=== PATIENT | male | born 1985 | race Caucasian/White ===

== ENCOUNTER → 2020-10-24 11:18 | Outpatient (BNVA) | payer SELFPAY | PROVIDERS: Visit Provider Nurse Practitioner Family | DX: M25.511 Pain in right shoulder (principal); V29.3XXA Motorcycle rider (driver) (passenger) injured in unspecified nontraffic accident, initial encounter; R07.1 Chest pain on breathing; R14.0 Abdominal distension (gaseous); F11.20 Opioid dependence, uncomplicated; R31.9 Hematuria, unspecified; R81 Glycosuria; S43.101A Unspecified dislocation of right acromioclavicular joint, initial encounter | CPT/HCPCS: 71046; 73030 ==

== ENCOUNTER 2020-10-24 13:25 | Emergency (ER) | payer SELFPAY ==
[2020-10-24 13:41] VITALS: BP 164/96; PULSE 81; RESP 14; TEMP 36.4; O2SAT 100; BMI 25.2
--- NOTE | 2020-10-24 16:15 | XR_ITS ---
WS: [id number] Right shoulder, 3 views, 10/24/2020, 1723 hours Clinical Data: pain Comparison: Right shoulder, yesterday, 1142 hours Findings: There is elevation of the right clavicle above the acromium and there is widening of the distance bet ween the acromion and lateral clavicle. This is consistent with an AC separation and minimal dislocat ion. The shoulder joints in good position. No fractures are seen. The soft tissues are normal. XR/XR shoulder RT min 2V* [id number] Impression: AC separation and dislocation unchanged from earlier in the day.
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
[2020-10-24 16:38] VITALS: BP 122/80; PULSE 77; RESP 16; O2SAT 98
[2020-10-24 16:43] VITALS: RESP 18; O2SAT 98
[2020-10-24] MEDS: ondansetron 2 mg/ML SDV 2 mL 4 MG IVP (16:43)
[2020-10-24] MEDS: sodium chloride 0.9% 1,000 ML 999 ML IV (16:43)
[2020-10-24] MEDS: morphine 4 mg/mL SDV 1 mL IVP (16:43)
[2020-10-24 16:44] LABS: Basophils % 0.3 %; Eosinophils # 0.1 10^3/uL (0.0-0.8); Hematocrit 45.7 % (42.0-52.0); Hemoglobin 15.1 g/dL (11.7-16.6); Lymphocytes % 18.1 %; Mean Corpuscular Hemoglobin 29.4 pg (28.0-34.0); Mean Corpuscular Volume 88.9 fL (80-94); Mean Platelet Volume 11.3 fL (7.4-10.4); Monocytes # 0.9 10^3/uL (0.2-0.9); Monocytes % 7.7 %; Neutrophils # 8.17 10^3/uL (1.8-7.7); Neutrophils % 72.6 %; Nucleated Red Blood Cells % 0 %; Platelet Count 249 10^3/cmm (130-400); Red Blood Count 5.14 10^6/uL (4.1-5.3); Red Cell Distribution Width 12.3 % (12.1-15.1); White Blood Count 11.2 10^3/uL (4.0-10.0)
[2020-10-24] MEDS: iohexol 300 mg/mL 100 mL Btl IV (17:13)
[2020-10-24 17:20] LABS: Alanine Aminotransferase 66 U/L (0-41); Albumin Level 4.2 g/dL (3.5-5.2); Alkaline Phosphatase 88 IU/L (40-130); Anion Gap 12.7 (5-19); Aspartate Amino Transferase 37 U/L (0-40); Blood Urea Nitrogen 11 mg/dL (6-20); Calcium 9.3 mg/dL (8.5-10.5); Carbon Dioxide 27 mmol/L (22-29); Chloride 94 mmol/L (98-107); Globulin 2.9 g/dL (1.3-4.6); Glomerular Filtration Rate 96.6 mL/min (90-130); Glucose 388 mg/dL (65-115); Osmolality Calculated 283 mOsm/kg (285-295); Potassium 4.7 mmol/L (3.5-5.1); Sodium 129 mmol/L (136-145); Total Bilirubin 0.5 mg/dL (0.15-1.2); Total Protein 7.1 g/dL (6.6-8.7)
[2020-10-24 17:37] VITALS: BP 136/100; PULSE 76; RESP 16; O2SAT 99
[2020-10-24 17:46] LABS: Add Urine Microscopic? NO
[2020-10-24 18:22] LABS: Bilirubin Urine Neg (Negative); Blood Urine Neg (Negative); Glucose Urine UA 4+ (Normal); Ketones Urine Negative (Negative); Leukocyte Esterase Urine Negative (Negative); Nitrate Urine Negative (Negative); Protein Urine Neg (Negative); Urine Appearance Clear (CLEAR); Urine Color Straw (Yellow); Urobilinogen Urine Norm (Negative); pH Urine 5 (5-7)
[2020-10-24 18:58] VITALS: BP 139/99; PULSE 88; RESP 16; O2SAT 98
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
--- NOTE | 2020-11-07 09:59 | DCPLANNER ---
payroll manager called the ortho clinic, spoke with Elvira to confirm that a follow up appointment had been scheduled for patient. payroll manager was told that clinic called patient to schedule an appointment, but that patient was to call clinic back to schedule that appointment.
== END 2020-10-24 18:58 | disposition home or self-care (01) ==
PROVIDERS: Family Medicine; Emergency Provider Emergency Medicine
DX: S43.101A Unspecified dislocation of right acromioclavicular joint, initial encounter (principal); S22.31XA Fracture of one rib, right side, initial encounter for closed fracture; F17.210 Nicotine dependence, cigarettes, uncomplicated; V29.9XXA Motorcycle rider (driver) (passenger) injured in unspecified traffic accident, initial encounter
CPT/HCPCS: 71260; 72125; 73030; 73502; 74177; 80053; 80307; 81000; 81003; 85025; 96361; 96374; 96375; 99284; J2270; J2405; J7030; Q9967

== ENCOUNTER → 2021-08-05 13:31 | Outpatient (BNVA) | payer SELFPAY | PROVIDERS: Visit Provider Nurse Practitioner Family | DX: M25.572 Pain in left ankle and joints of left foot (principal); M25.472 Effusion, left ankle | CPT/HCPCS: 73610 ==

== ENCOUNTER 2023-09-14 22:08 | Emergency (ER) | payer SELFPAY ==
[2023-09-14 22:27] VITALS: BP 142/91; PULSE 62; RESP 18; TEMP 36.7; O2SAT 98; BMI 21.1
[2023-09-14 22:30] LABS: Glucose Point of Care > 600 mg/dL (70-110)
--- NOTE | 2023-09-14 22:49 | W.ED.GENADLT ---
HPI - General Adult General: Chief complaint: General Medical Stated complaint: hyperglycemia Time Seen by Provider: 09/14/23 22:19 History of Present Illness: Patient presents here from [facility]'s office with complaints of high blood sugar. Patient says he is a diabetic but is never really been to the doctor and just takes [id number] when he can. But patient has not had any insulin in weeks. Patient did say 3 to 4 years ago he was in the hospital for about 2 weeks secondary to severe hyperglycemia NS when they found that he was a diabetic. The patient did not follow-up with any doctor after that. Review of Systems General: Reports: 10 or more systems reviewed and unremarkable except in HPI and below PFSH ED PFSH: Social History Smoking and tobacco/nicotine status: current every day tobacco/nicotine user cigarettes Packs smoked per day: 2 Substance/Drug Use: current Physical Exam Const: COMMON NORMALS: no acute distress, average body habitus, patient oriented x3, no limitations, healthy appearing, alert and well nourished HENMT: COMMON NORMALS: normocephalic, atraumatic, hearing grossly normal bilaterally, external ears normal, Normal external nose present, moist oral mucous membranes and oropharynx normal HEAD & SCALP: normocephalic and atraumatic NOSE: Normal external nose present EXTERNAL EAR: Yes external ears normal Neck/C-Spine: COMMON NORMALS: full ROM, no lymphadenopathy, supple, no meningeal signs, no JVD and Thyroid normal THYROID: Thyroid normal Chest: COMMONS NORMALS: normal inspection of the chest and normal palpation of entire chest wall Resp: COMMON NORMALS: normal respiratory effort, No retractions, No use of accessory muscles and clear to auscultation bilaterally AUSCULTATION: clear to auscultation bilaterally Cardio: COMMON NORMALS: no JVD, regular rate, regular rhythm, S1 normal heart sound present, S2 normal heart sound present, No gallops present (Cardio), No clicks present (Cardio), No murmurs present (Cardio) and No rub (Cardio) RATE: regular rate RHYTHM: regular rhythm HEART SOUNDS: S1 normal heart sound present and S2 normal heart sound present GI: COMMON NORMALS: Normal to inspection, nondistended, normoactive bowel sounds present, Soft to palpation, non-tender, No hepatosplenomegaly present and no masses PALPATION: Yes Soft to palpation and Yes No hepatosplenomegaly present Neuro: COMMON NORMALS: patient oriented x3 SENSORIUM/ORIENTATION: Yes alert MENINGEAL SIGNS: Yes no meningeal signs Course Vital Signs: Vital signs: Vital Signs Temperature 98.0 F 09/14/23 22:27 Pulse Rate 64 09/15/23 01:19 Respiratory Rate 18 09/14/23 22:27 Blood Pressure 132/78 09/15/23 01:19 Pulse Oximetry 99 09/15/23 01:19 Oxygen Delivery Me thod Room Air 09/14/23 22:27 MDM - General Adult Medical Decision Making Patient was brought to the ER with high blood sugar. Patient is uncontrolled diabetic who does not use medicine correctly. Patient's sugar was elevated he was given IV insulin and bolus normal saline. His lab work did not show ketones, he was not acidotic and he was discharged back to the care of the police department. Differential Diagnosis DKA, hyperglycemia Medical Records I reviewed the patient's medical records. Lab Data I reviewed the patient's lab results. 09/14/23 22:45 09/14/23 22:45 Laboratory Results WBC 6.30 10^3/uL (3.29-11.43) 09/14/23 22:45 RBC 5.02 10^6/uL (3.85-5.65) 09/14/23 22:45 Hgb 14.70 g/dL (11.27-16.99) 09/14/23 22:45 Hct 43.0 % (37-53) 09/14/23 22:45 MCV 85.7 fl (82-101) 09/14/23 22:45 MCH 29.3 pg (27-33) 09/14/23 22:45 MCHC 34.2 g/dL (30-55) 09/14/23 22:45 RDW 12.0 % (12.1-15.1) L 09/14/23 22:45 Plt Count 246 10^3/cmm (157-399) 09/14/23 22:45 MPV 11.4 fL (7.4-10.4) H 09/14/23 22:45 Neut % (Auto) 53.4 % 09/14/23 22:45 Lymph % (Auto) 37.5 % 09/14/23 22:45 [place] % (Auto) 7.3 % 09/14/23 22:45 Eos % (Auto) 1.0 % 09/14/23 22:45 Baso % (Auto) 0.6 % 09/14/23 22:45 Neut # (Auto) 3.37 10^3/uL (1.8-7.7) 09/14/23 22:45 Lymph # (Auto) 2.4 10^3/uL (0.8-4.8) 09/14/23 22:45 [place] # (Auto) 0.5 10^3/uL (0.2-0.9) 09/14/23 22:45 Eos # (Auto) 0.1 10^3/uL (0.0-0.8) 09/14/23 22:45 Baso # (Auto) 0.0 10^3/uL (0.0-0.1) 09/14/23 22:45 Nucleated RBC % (auto) 0 % 09/14/23 22:45 Nucleated RBCs # 0.0 /100WBC 09/14/23 22:45 Specimen Type Mixedvenous 09/14/23 23:10 Sample Site Radial, left 09/14/23 23:10 ABG pH 7.38 (7.35-7.45) 09/14/23 23:10 ABG pCO2 51.2 mmHg (35-45) H 09/14/23 23:10 ABG PO2/FiO2 Ratio 0 09/14/23 23:10 ABG HCO3 30.3 mmol/L (22-26) H 09/14/23 23:10 ABG O2 Saturation 72.8 09/14/23 23:10 ABG Base Excess 3.8 mmol/L (-2.0-2.0) H 09/14/23 23:10 [place] Test Pos 09/14/23 23:10 A-a O2 Gradient 6.4 mmHg (5-10) 09/14/23 23:10 Hematocrit 47.8 % (42-52) 09/14/23 23:10 Hgb O2 Saturation 71.3 % (95-100) L 09/14/23 23:10 Carboxyhemoglobin 1.3 %THgb (0.4-20.1) 09/14/23 23:10 Methemoglobin 0.8 % (0.4-1.5) 09/14/23 23:10 Total Hemoglobin 15.6 g/dL (14-18) 09/14/23 23:10 Sodium 129.0 mmol/L (131-143) L 09/14/23 23:10 Potassium 4.2 mmol/L (3.5-5.0) 09/14/23 23:10 Glucose 533.0 mg/dL (70-115) H 09/14/23 23:10 Ionized Calcium 1.2 mmol/L (1.1-1.4) 09/14/23 23:10 O2 Delivery Device None 09/14/23 23:10 FiO2 21.0 % 09/14/23 23:10 [place] ID Alewe 09/14/23 23:10 Sodium 127 mmol/L (136-145) L 09/14/23 22:45 Potassium 4.6 mmol/L (3.5-5.1) 09/14/23 22:45 Chloride 91 mmol/L (98-107) L 09/14/23 22:45 Carbon Dioxide 25 mmol/L (22-29) 09/14/23 22:45 Anion Gap 15.6 (5-19) 09/14/23 22:45 BUN 17 mg/dL (6-20) 09/14/23 22:45 Creatinine 0.9 mg/dL (0.7-1.2) 09/14/23 22:45 GFR Calculation 95.0 mL/min (90-130) 09/14/23 22:45 Glucose 581 mg/dL (65-115) H* 09/14/23 22:45 POC Glucose 264 mg/dL (70-110) H 09/15/23 01:09 Calculated Osmolality 292 mOsm/kg (285-295) 09/14/23 22:45 Calcium 9.5 mg/dL (8.5-10.5) 09/14/23 22:45 Magnesium 1.8 mg/dL (1.7-2.3) 09/14/23 22:45 Total Bilirubin 0.5 mg/dL (0.15-1.2) 09/14/23 22:45 AST 15 U/L (0-40) 09/14/23 22:45 ALT 26 U/L (0-41) 09/14/23 22:45 Alkaline Phosphatase 84 U/L (40-130) 09/14/23 22:45 Total Protein 6.4 g/dL (6.6-8.7) L 09/14/23 22:45 Albumin 4.0 g/dL (3.5-5.2) 09/14/23 22:45 Globulin 2.4 g/dL (1.3-4.6) 09/14/23 22:45 Urine Color Light yellow (Yellow) 09/14/23 23:29 Urine Appearance Clear (CLEAR) 09/14/23 23:29 Urine pH 7 (5-7) 09/14/23 23:29 Ur Specific [place] 1.005 (1.005-1.030) 09/14/23 23:29 Urine Protein Neg (Negative) 09/14/23 23:29 Urine Glucose (UA) 4+ (Normal) H 09/14/23 23:29 Urine Ketones Negative (Negative) 09/14/23 23:29 Urine Blood Neg (Negative) 09/14/23 23:29 Urine Nitrate Negative (Negative) 09/14/23 23:29 Urine Bilirubin Neg (Negative) 09/14/23 23:29 Urine Urobilinogen Neg mg/dL (Negative) 09/14/23 23:29 Ur Leukocyte Esterase Negative (Negative) 09/14/23 23:29 Serum Ketones Negative (Negative) 09/14/23 22:45 All radiology interpretation(s) finalized by discharge Discharge Plan Discharge Patient Disposition: Home Clinical Impression: Uncontrolled diabetes mellitus with hyperglycemia Qualifiers: Diabetes mellitus type: type 2 Qualified Code(s): E11.65 - Type 2 diabetes mellitus with hyperglycemia Condition: Stable Prescriptions: New metformin 1,000 mg tablet 1,000 mg PO BID Qty: 60 0RF No Action Novolin N FlexPen 100 unit/mL (3 mL) insulin pen See Rx Instructions SUBCUT QAM Rx Instructions: 30 units in am and 18 units in the evening SUBCUT every morning; Discharge Orders: Discharge ED (Routine); Ordered 09/15/23 Ordered By: Flakito Vazquez Patient Instructions: Hyperglycemia Activity Restrictions/Additional Instructions: Your lab work showed extremely elevated glucose. This is secondary to you not taking any diabetes medicine. You are given 5 units of regular insulin along with 1 L of normal saline and we watched your blood sugar come down to a more normal range. You will be placed on metformin to take twice a day as beginning medicine to help control your blood sugar. You may need more medicine this. Please follow-up with your family practice physician or the physician from the [place] [facility] within the next 7 days for further evaluation and treatment. Coding Level of Care Code ED Light Out Examiner for Shree Best
[2023-09-14 22:52] LABS: Basophils % 0.6 %; Eosinophils # 0.1 10^3/uL (0.0-0.8); Lymphocytes # 2.4 10^3/uL (0.8-4.8); Lymphocytes % 37.5 %; Mean Corpuscular HGB Conc 34.2 g/dL (30-55); Mean Corpuscular Hemoglobin 29.3 pg (27-33); Mean Corpuscular Volume 85.7 fl (82-101); Mean Platelet Volume 11.4 fL (7.4-10.4); Monocytes # 0.5 10^3/uL (0.2-0.9); Monocytes % 7.3 %; Neutrophils # 3.37 10^3/uL (1.8-7.7); Neutrophils % 53.4 %; Nucleated Red Blood Cells % 0 %; Platelet Count 246 10^3/cmm (157-399); Red Blood Count 5.02 10^6/uL (3.85-5.65)
[2023-09-14 23:02] LABS: Ketone (Acetest) Serum Negative (Negative)
[2023-09-14 23:10] LABS: Alanine Aminotransferase 26 U/L (0-41); Alkaline Phosphatase 84 U/L (40-130); Anion Gap 15.6 (5-19); Aspartate Amino Transferase 15 U/L (0-40); Blood Urea Nitrogen 17 mg/dL (6-20); Calcium 9.5 mg/dL (8.5-10.5); Carbon Dioxide 25 mmol/L (22-29); Chloride 91 mmol/L (98-107); Globulin 2.4 g/dL (1.3-4.6); Magnesium 1.8 mg/dL (1.7-2.3); Osmolality Calculated 292 mOsm/kg (285-295); Potassium 4.6 mmol/L (3.5-5.1); Sodium 127 mmol/L (136-145); Total Bilirubin 0.5 mg/dL (0.15-1.2); Total Protein 6.4 g/dL (6.6-8.7)
[2023-09-14 23:12] LABS: ABG PCO2 51.2 mmHg (35-45); ABG PH Result 7.38 (7.35-7.45); Alveolar-Arterial Oxygen Gradi 6.4 mmHg (5-10); Arterial Blood Gas Hematocrit 47.8 % (42-52); Base Excess ABG 3.8 mmol/L (-2.0-2.0); Blood Gas Allen Test Pos; Blood Gas Sample Site Radial, left; Carboxyhemoglobin 1.3 %THgb (0.4-20.1); HCO3 ABG 30.3 mmol/L (22-26); HGB O2 Sat 71.3 % (95-100); Ionized Calcium Level - ABG 1.2 mmol/L (1.1-1.4); Methemoglobin 0.8 % (0.4-1.5); Oxygen Saturation ABG 72.8; PO2 FiO2 Ratio Arterial Blood 0; Potassium Level - ABG 4.2 mmol/L (3.5-5.0); Total Hemoglobin 15.6 g/dL (14-18)
[2023-09-14 23:13] LABS: Blood Gas Sample Type MixedVenous
[2023-09-14 23:20] LABS: Glucose 581 mg/dL (65-115)
[2023-09-14 23:22] LABS: Glucose Point of Care 434 mg/dL (70-110)
[2023-09-14] MEDS: sodium chloride 0.9% 1,000 ML 999 ML IV (23:24)
[2023-09-14] MEDS: insulin regular-human 100 units/1 mL 5 UNIT IVP (23:25)
[2023-09-14 23:48] LABS: Add Urine Microscopic? NO; Charge for UA Resulting for Rev
[2023-09-14 23:52] LABS: Bilirubin Urine Neg (Negative); Blood Urine Neg (Negative); Glucose Urine UA 4+ (Normal); Ketones Urine Negative (Negative); Leukocyte Esterase Urine Negative (Negative); Nitrate Urine Negative (Negative); Protein Urine Neg (Negative); Specific Gravity, Urine 1.005 (1.005-1.030); Urine Appearance Clear (CLEAR); Urine Color Light yellow (Yellow); Urobilinogen Urine Neg (Negative); pH Urine 7 (5-7)
[2023-09-15 00:04] LABS: Glucose Point of Care 246 mg/dL (70-110)
[2023-09-15 01:12] LABS: Glucose Point of Care 264 mg/dL (70-110)
[2023-09-15 01:19] VITALS: BP 132/78; PULSE 64; O2SAT 99
[2023-09-15 10:10] LABS: PO2 ABG 38.9 mmHg (80.0-100.0)
== END 2023-09-15 01:19 | disposition home or self-care (01) ==
PROVIDERS: Emergency Provider Emergency Medicine
DX: E11.65 Type 2 diabetes mellitus with hyperglycemia (principal); Z79.4 Long term (current) use of insulin; F17.210 Nicotine dependence, cigarettes, uncomplicated
CPT/HCPCS: 36415; 36416; 36600; 80051; 80053; 81003; 82009; 82330; 82805; 82962; 83735; 85025; 96361; 96374; 99284; J1815; J7030